=== PATIENT | male | born 1975 | race American Indian/Alaskan Native ===

== ENCOUNTER 2017-07-08 15:34 | Emergency (ER) | payer MEDICARE ==
[2017-07-08 15:46] VITALS: BP 98/71
[2017-07-08] MEDS ORDERED: MORPHINE ONE (15:58)
[2017-07-08] MEDS ORDERED: ZOFRAN ONE (15:58)
[2017-07-08] MEDS ORDERED: NORCO 7.5/325 PO ONE (19:50)
[2017-07-08] MEDS ORDERED: DELTASONE PO ONE (19:50)
[2017-07-08] MEDS ORDERED: LOVENOX SUB-Q ONE (19:51)
--- NOTE | 2017-07-08 20:08 | Emergency Department Report ---
HPI - General Chief Complaint: Extremity Injury, Lower Time Seen by Provider: 07/08/17 19:47 - HPI HPI: The patient is a 41-year-old male with a history of gout and congestive heart failure, who presents for evaluation of right knee pain. The patient reports right knee pain for the past one day, achy in quality, moderate in severity, exacerbated with movement of the right knee, associated with swelling of the knee. The patient states that his symptoms are consistent with previous gout attacks. He denies trauma to the knee, proximal pain or calf muscle pain, unilateral leg swelling, puncture wound to the knee, redness, chills, night sweats, fever. ED Past Medical Hx - Past Medical History Hx Congestive Heart Failure: Yes Additional medical history: GOUT - Surgical History Additional Surgical History: CARDIAC CATHETER, ICD - Social History Smoking Status: Former Smoker Substance Use Type: None - Medications Home Medications: Home Medications Medication Instructions Recorded Confirmed Last Taken Type HYDROcodone/APAP 7.5-325 [[place] 1 each PO Q8HR PRN #15 tablet 07/08/17 Unknown Rx 7.5-325 mg TAB] Prednisone [predniSONE 10 mg 10 mg PO .TAPER #1 tab.ds.pk 07/08/17 Unknown Rx (6-Day Pack, 21 Tabs)] ED Review of Systems ROS: Stated complaint: RIGHT KNEE PAIN Other details as noted in HPI Constitutional: denies: fever ENT: denies: throat or neck pain Respiratory: denies: cough, shortness of breath Cardiovascular: denies: chest pain Endocrine: denies unexplained weight loss or gain Gastrointestinal: denies: abdominal pain, nausea Genitourinary: denies: dysuria Musculoskeletal: reports: leg swelling and knee pain Skin: denies: rash Neurological: denies: headache Hematological/Lymphatic: denies: easy bleeding or easy bruising Psych: denies sadness or hopelessness Physical Exam - Physical Exam Vital Signs: Vital Signs 07/08/17 15:43 Temperature 98.2 F Pulse Rate 97 H Respiratory 18 Rate Blood Pressure 98/71 O2 Sat by Pulse 96 Oximetry Physical Exam: General: well-nourished, well-developed, no acute distress Head: Normocephalic, atraumatic Eyes: normal sclera ENT: Mucous membranes are pale and dry Neck: No neck stiffness, no cervical adenopathy Respiratory: Breath sounds equal bilaterally, no wheezing, rales, rhonchi, or crackles Cardio: S1 and S2 present, no murmurs, rubs, gallops, capillary refill is delayed Abdomen: Normoactive bowel sounds, soft abdomen, no rigidity, no guarding or rebound tenderness Musc: 1+ pitting edema of the bilateral lower legs present, No erythema, fluctuance, or warmth to the rt knee or surrounding knee, full passive and active range of motion intact, quadriceps extensor tendon function intact, no obvious swelling or effusion, rt knee lateral, medial, superior and inferior joint line tenderness to palpation present, no obvious effusion appreciable, Luis's and posterior drawer signs are negative, no LCL or MCL laxity, Flor's unable to be performed secondary to pain. Leg compartments are soft and pliable, distal sensation and motor function intact, reflexes 2+ and symmetric at the patella and Achilles bilaterally, distal pulses intact. Skin: No rash Neuro: no facial drooping, normal speech Psych: Normal affect ED Course Vital Signs 07/08/17 15:43 Temperature 98.2 F Pulse Rate 97 H Respiratory 18 Rate Blood Pressure 98/71 O2 Sat by Pulse 96 Oximetry ED Medical Decision Making - Medical Decision Making The patient was seen and examined by myself. The patient is placed on a satellite project site monitor and continuous pulse ox. On initial evaluation, the patient was found to be in no distress. Evaluation orders were placed. The patient is given a tablet of [place] and prednisone for treatment of his acute gout attack. As patient is afebrile and his exam is without any redness, fluctuance, crepitus , or wound to the right knee, evaluation findings are not consistent with septic arthritis is unlikely. The patient was reevaluated and reported that their symptoms were markedly improved. The patient is stable for discharge with outpatient follow-up. The patient is given follow-up and return instructions. The patient expressed understanding and agreed with the plan. The patient is discharged in stable condition.> Critical care attestation.: If time is entered above; I have spent that time in minutes in the direct care of this critically ill patient, excluding procedure time. ED Disposition Clinical Impression: Acute pain of right lower extremity Acute gout of right knee Qualifiers: Gout etiology: unspecified cause Qualified Code(s): M10.9 - Gout, unspecified Disposition: TO HOME OR SELFCARE Is pt being admited?: No Does the pt Need Aspirin: No Condition: Stable Instructions: Acute Gouty Arthritis (ED), Arthralgia (ED) Prescriptions: HYDROcodone/APAP 7.5-325 [[place] 7.5-325 mg TAB] 1 each PO Q8HR PRN #15 tablet PRN Reason: Pain Prednisone [predniSONE 10 mg (6-Day Pack, 21 Tabs)] 10 mg PO .TAPER #1 tab.ds.pk Referrals: PRIMARY CARE, [Primary Care Provider] - 3-5 Days DANIELLE TYLER MD [Staff Physician] - 3-5 Days Time of Disposition: 20:18
== END 2017-07-08 20:35 | disposition home or self-care (01) ==
LOC: ED 15:34
DX: M10.9 Gout, unspecified (principal); I50.9 Heart failure, unspecified; Z87.891 Personal history of nicotine dependence
CPT/HCPCS: 99283; J2270; J2405; J7512

== ENCOUNTER 2017-08-21 09:58 | Emergency (ER) | payer MEDICARE ==
[2017-08-21 11:41] VITALS: BP 94/56
[2017-08-21] MEDS ORDERED: SUBLIMAZE IM ONE (12:15)
[2017-08-21] MEDS ORDERED: ZOFRAN IM ONE (12:15)
[2017-08-21] MEDS ORDERED: TORADOL IM ONE (12:15)
[2017-08-21] MEDS ORDERED: COLCHICINE PO ONE (12:19)
--- NOTE | 2017-08-21 12:25 | Emergency Department Report ---
HPI - General Chief Complaint: Pain General Time Seen by Provider: 08/21/17 12:09 - HPI HPI: Don 22 The patient is a 41-year-old male presenting with a chief complaint of polyarthralgia. The patient has a history of gout and states he usually has an attack in his foot. The patient states for the past 2 days she has had pain in multiple joints but greatest in his right wrist. Patient denies any preceding trauma or fever. Patient states the pain feels somewhat consistent with his previous bouts of gout. The patient gives his pain a score of 11/10. Location: [See above] Duration: 2 days Quality: Pain consistent with gout Severity: 11/10 Modifying factors: Movement increases pain Context: [see above] Mode of transportation: [not driving] ED Past Medical Hx - Past Medical History Previous Medical History?: Yes Hx Congestive Heart Failure: Yes Hx Pulmonary Embolism: Yes (2005. Currently still taking anticoagulation) Additional medical history: GOUT - Surgical History Past Surgical History?: Yes Additional Surgical History: CARDIAC CATHETER, ICD - Family History Family history: no significant - Social History Smoking Status: Former Smoker (nontoxic 1.5 months) Substance Use Type: None (denies illicit drug use), Prescribed - Medications Home Medications: Home Medications Medication Instructions Recorded Confirmed Last Taken Type HYDROcodone/APAP 7.5-325 [[place] 1 each PO Q8HR PRN #15 tablet 07/08/17 Unknown Rx 7.5-325 mg TAB] Prednisone [predniSONE 10 mg 10 mg PO .TAPER #1 tab.ds.pk 07/08/17 Unknown Rx (6-Day Pack, 21 Tabs)] HYDROcodone/APAP 5-325 [[place] 1 - 2 each PO Q6HR PRN #14 tablet 08/21/17 Unknown Rx 5/325] Naproxen [Naprosyn] 500 mg PO BID PRN #20 tablet 08/21/17 Unknown Rx ED Review of Systems ROS: Stated complaint: JOINT PAIN Other details as noted in HPI Constitutional: denies: fever Eyes: denies: eye pain ENT: denies: throat pain Cardiovascular: denies: chest pain Gastrointestinal: denies: abdominal pain Genitourinary: denies: dysuria Musculoskeletal: arthralgia Neurological: denies: headache Physical Exam - Physical Exam Vital Signs: Vital Signs 08/21/17 08/21/17 10:30 11:38 Temperature 97.4 F L Pulse Rate 48 L 50 L Respiratory 20 16 Rate Blood Pressure 95/42 Blood Pressure 94/56 [Right] O2 Sat by Pulse 99 100 Oximetry Physical Exam: GENERAL: The patient is well-developed well-nourished male sitting on stretcher appearing to be in mild discomfort. [] HEENT: Normocephalic. Atraumatic. Extraocular motions are intact. Patient has moist mucous membranes. NECK: Supple. Trachea midline CHEST/LUNGS: Clear to auscultation. There is no respiratory distress noted. HEART/CARDIOVASCULAR: Regular. There is no tachycardia. There is no gallop rub or murmur. ABDOMEN: Abdomen is soft, nontender. Patient has normal bowel sounds. There is no abdominal distention. SKIN: There is no rash. There is no edema. There is no diaphoresis. No overlying erythema appreciated over patient's joints NEURO: The patient is awake, alert, and oriented. The patient is cooperative. The patient has normal speech MUSCULOSKELETAL: There is no increased warmth or edema appreciated of the patient's joints. There is limited range of motion of the right wrist secondary to pain. There is no evidence of acute injury. ED Course Vital Signs 08/21/17 08/21/17 10:30 11:38 Temperature 97.4 F L Pulse Rate 48 L 50 L Respiratory 20 16 Rate Blood Pressure 95/42 Blood Pressure 94/56 [Right] O2 Sat by Pulse 99 100 Oximetry ED Medical Decision Making - Lab Data Result diagrams: 08/21/17 12:52 Laboratory Tests 08/21/17 12:52 WBC 6.9 RBC 5.08 H Hgb 15.0 Hct 45.4 MCV 89 MCH 30 MCHC 33 RDW 16.9 H Plt Count 169 Williams % (Auto) Tear Down Matcher Add Manual Diff Complete Total Counted 100 Seg Neuts % (Manual) 65.0 Band Neutrophils % 0 Lymphocytes % (Manual) 18.0 Reactive Lymphs % (Man) 0 Monocytes % (Manual) 16.0 H Eosinophils % (Manual) 1.0 Basophils % (Manual) 0 Metamyelocytes % 0 Myelocytes % 0 Promyelocytes % 0 Blast Cells % 0 Nucleated RBC % Not Reportable Seg Neutrophils # Man 4.5 Band Neutrophils # 0.0 Lymphocytes # (Manual) 1.2 Abs React Lymphs (Man) 0.0 Monocytes # (Manual) 1.1 H Eosinophils # (Manual) 0.1 Basophils # (Manual) 0.0 Metamyelocytes # 0.0 Myelocytes # 0.0 Promyelocytes # 0.0 Blast Cells # 0.0 WBC Morphology Not Reportable Hypersegmented Neuts Not Reportable Hyposegmented Neuts Not Reportable Hypogranular Neuts Not Reportable Smudge Cells Not Reportable Toxic Granulation Not Reportable Toxic Vacuolation Not Reportable Dohle Bodies Not Reportable Pelger-Huet Anomaly Not Reportable Anastasia Rods Not Reportable Platelet Estimate Consistent w auto Clumped Platelets Not Reportable Plt Clumps, EDTA Not Reportable Large Platelets Not Reportable Giant Platelets Not Reportable Platelet Satelliting Not Reportable Plt Morphology Comment Not Reportable RBC Morphology Normal Dimorphic RBCs Not Reportable Polychromasia Not Reportable Hypochromasia Not Reportable Poikilocytosis Not Reportable Anisocytosis Not Reportable Microcytosis Not Reportable Macrocytosis Not Reportable Spherocytes Not Reportable Pappenheimer Bodies Not Reportable Sickle Cells Not Reportable Target Cells Not Reportable Tear Drop Cells Not Reportable Ovalocytes Not Reportable Helmet Cells Not Reportable Caldera-Toco Bodies Not Reportable [place] Rings Not Reportable [place] Cells Not Reportable Bite Cells Not Reportable Crenated Cell Not Reportable Elliptocytes Not Reportable Acanthocytes (Spur) Not Reportable Rouleaux Not Reportable Hemoglobin C Crystals Not Reportable Schistocytes Not Reportable Malaria parasites Not Reportable Clint Bodies Not Reportable Hem Pathologist Commnt No - Radiology Data Radiology results: report reviewed (left wrist x-ray), image reviewed (left wrist x-ray) interpreted by me: Left wrist x-ray-no acute fractures, no foreign body [facility] [address] [place] [address] XRay Report Signed Patient: MERE BOOTHE MR#: [id number] : 1975 Acct:[id number] Age/Sex: 41 / M ADM Date: 08/21/17 Loc: ED Attending Dr: Ordering Physician: TOMASA PARIS MD Date of Service: 08/21/17 Procedure(s): XR wrist 2V RT Accession Number(s): [id number] cc: TOMASA PARIS MD Fluoro Time In Minutes: RIGHT WRIST, 2 views History: wrist pain, injury. The scapholunate interval appears increased measuring 6 mm suggesting scapholunate ligament injury. The bony structures are intact. No evidence for fracture or dislocation. No significant degenerative changes. Mild soft tissue swelling is suspected. IMPRESSION: Probable scapholunate ligament injury. Transcribed By: TTR Dictated By: CLARK CORNEJO JR, MD Electronically Authenticated By: CLARK CORNEJO JR, MD Signed Date/Time: 08/21/171227 DD/ 26 TD/TT: 08/21/171227 - Medical Decision Making The radiologist's interpretation of potential scapholunate ligament injury discussed with patient. Patient again denies any form of trauma or mechanism consistent with this type of injury. I do not believe scapholunate ligament injury exists however the patient is still being placed in a wrist immobilizer and given a referral for orthopedic surgery for reevaluation - Differential Diagnosis gout, polyarthralgia, Critical care attestation.: If time is entered above; I have spent that time in minutes in the direct care of this critically ill patient, excluding procedure time. ED Disposition Clinical Impression: Gouty arthritis, Acute pain of right wrist Disposition: TO HOME OR SELFCARE Is pt being admited?: No Does the pt Need Aspirin: No Condition: Stable Instructions: Acute Gouty Arthritis (ED) Additional Instructions: Return to the emergency department immediately should you develop worsening symptoms, fever, inability to tolerate food or liquid or any other concerns. Prescriptions: HYDROcodone/APAP 5-325 [[place] 5/325] 1 - 2 each PO Q6HR PRN #14 tablet PRN Reason: Pain Naproxen [Naprosyn] 500 mg PO BID PRN #20 tablet PRN Reason: Pain, Moderate (4-6) Referrals: PRIMARY MD MARLEN [Primary Care Provider] - 3-5 Days DANIELLE ANGELES MD [Staff Physician] - 3-5 Days (Dr. Angeles is an orthopedic surgeon. Please follow-up with him for further evaluation) Time of Disposition: 14:17
--- NOTE | 2017-08-21 12:42 | XRay Report ---
RIGHT WRIST, 2 views History: wrist pain, injury. The scapholunate interval appears increased measuring 6 mm suggesting scapholunate ligament injury. The bony structures are intact. No evidence for fracture or dislocation. No significant degenerative changes. Mild soft tissue swelling is suspected. IMPRESSION: Probable scapholunate ligament injury.
[2017-08-21 13:12] LABS: Hematocrit 45.4 % (35.5-45.6); Mean Corpuscular HGB Conc 33 % (32-34); Mean Corpuscular Hemoglobin 30 pg (28-32); Mean Corpuscular Volume 89 fl (84-94); Platelet Count 169 K/mm3 (140-440); Red Blood Count 5.08 M/mm3 (3.65-5.03); Red Cell Distribution Width 16.9 % (13.2-15.2)
[2017-08-21 14:01] LABS: Basophils % (Manual) 0 % (0.0-1.8); Platelet Estimate Consistent w Auto; RBC Morphology Normal; Total Cells Counted 100
== END 2017-08-21 14:43 | disposition home or self-care (01) ==
LOC: ED 09:58
DX: M25.531 Pain in right wrist (principal); I50.9 Heart failure, unspecified; Z87.891 Personal history of nicotine dependence; M19.90 Unspecified osteoarthritis, unspecified site
CPT/HCPCS: 29125; 36415; 73100; 85007; 85025; 96372; 99284; J1885; J2405; J3010

== ENCOUNTER 2017-08-30 10:14 | Emergency (ER) | payer MEDICARE ==
[2017-08-30] MEDS ORDERED: TORADOL IM ONE (11:12)
[2017-08-30] MEDS ORDERED: DECADRON IM ONE (11:12)
[2017-08-30] MEDS ORDERED: COLCHICINE PO ONE (11:12)
--- NOTE | 2017-08-30 11:17 | Emergency Department Report ---
ED Extremity Problem HPI - General Chief complaint: Extremity Injury, Lower Stated complaint: R KNEE PAIN Time Seen by Provider: 08/30/17 11:11 Source: patient Mode of arrival: Ambulatory Limitations: No Limitations - History of Present Illness Initial comments: Patient is a 41-year-old -Armenian male is complaining of right knee swelling. Patient states these began about an approximately 2 days ago. Patient has a history of gout. Patient denies any injury fever at this time. Patient states that pain is not out of 10 in severity. His aching throbbing pain is worse when he stands when he bends his knee. - Related Data Previous Rx's Medication Instructions Recorded Last Taken Type HYDROcodone/APAP 7.5-325 [[place] 1 each PO Q8HR PRN #15 tablet 07/08/17 Unknown Rx 7.5-325 mg TAB] Prednisone [predniSONE 10 mg 10 mg PO .TAPER #1 tab.ds.pk 07/08/17 Unknown Rx (6-Day Pack, 21 Tabs)] HYDROcodone/APAP 5-325 [[place] 1 - 2 each PO Q6HR PRN #14 tablet 08/21/17 Unknown Rx 5/325] Prednisone [predniSONE 10 mg 10 mg PO .TAPER #1 tab.ds.pk 08/21/17 Unknown Rx (6-Day Pack, 21 Tabs)] Ibuprofen [Motrin] 800 mg PO Q8HR PRN #20 tablet 08/30/17 Unknown Rx traMADol [Ultram] 50 mg PO Q6HR PRN #12 tablet 08/30/17 Unknown Rx Allergies Allergy/AdvReac Type Severity Reaction Status Date / Time No Known Allergies Allergy Unverified 07/08/17 15:43 ED Review of Systems ROS: Stated complaint: R KNEE PAIN Other details as noted in HPI Comment: All other systems reviewed and negative ED Past Medical Hx - Past Medical History Hx Congestive Heart Failure: Yes Hx Pulmonary Embolism: Yes (2006. Currently still taking anticoagulation) Additional medical history: GOUT - Surgical History Additional Surgical History: CARDIAC CATHETER, ICD - Social History Smoking Status: Never Smoker Substance Use Type: None - Medications Home Medications: Home Medications Medication Instructions Recorded Confirmed Last Taken Type HYDROcodone/APAP 7.5-325 [[place] 1 each PO Q8HR PRN #15 tablet 07/08/17 Unknown Rx 7.5-325 mg TAB] Prednisone [predniSONE 10 mg 10 mg PO .TAPER #1 tab.ds.pk 07/08/17 Unknown Rx (6-Day Pack, 21 Tabs)] HYDROcodone/APAP 5-325 [[place] 1 - 2 each PO Q6HR PRN #14 tablet 08/21/17 Unknown Rx 5/325] Prednisone [predniSONE 10 mg 10 mg PO .TAPER #1 tab.ds.pk 08/21/17 Unknown Rx (6-Day Pack, 21 Tabs)] Ibuprofen [Motrin] 800 mg PO Q8HR PRN #20 tablet 08/30/17 Unknown Rx traMADol [Ultram] 50 mg PO Q6HR PRN #12 tablet 08/30/17 Unknown Rx ED Physical Exam - General Limitations: No Limitations General appearance: alert, in no apparent distress - Head Head exam: Present: atraumatic, normocephalic - Eye Eye exam: Present: normal appearance - ENT ENT exam: Present: mucous membranes moist - Neck Neck exam: Present: normal inspection - Respiratory Respiratory exam: Present: normal lung sounds bilaterally. Absent: respiratory distress - Cardiovascular Cardiovascular Exam: Present: regular rate, normal rhythm. Absent: systolic murmur, diastolic murmur, rubs, gallop - GI/Abdominal GI/Abdominal exam: Present: soft, normal bowel sounds - Rectal Rectal exam: Present: deferred - Extremities Exam Extremities exam: Present: normal inspection, joint swelling (patient's right knee shows some mild to moderate effusion. There is no warmth no redness to the skin. Patient has full range of motion.) - Back Exam Back exam: Present: normal inspection - Neurological Exam Neurological exam: Present: alert, oriented X3 - Psychiatric Psychiatric exam: Present: normal affect, normal mood - Skin Skin exam: Present: warm, dry, intact, normal color. Absent: rash ED Course Vital Signs 08/30/17 10:25 Temperature 98.5 F Pulse Rate 92 H Blood Pressure 102/56 O2 Sat by Pulse 98 Oximetry ED Medical Decision Making - Medical Decision Making Patient most likely has arthritic effusion present. Because of the history gout does occult seen steroids be given. Patient be discharged home with rice therapy. Critical care attestation.: If time is entered above; I have spent that time in minutes in the direct care of this critically ill patient, excluding procedure time. ED Disposition Clinical Impression: Knee effusion, right Disposition: DC-01 TO HOME OR SELFCARE Is pt being admited?: No Does the pt Need Aspirin: No Condition: Stable Instructions: Knee Effusion (ED), RICE Therapy (ED) Referrals: DANIELLE TYLER MD [Staff Physician] - 3-5 Days
[2017-08-30] MEDS ORDERED: COLCHICINE ONE (11:37)
[2017-08-30] MEDS ORDERED: DECADRON ONE (11:37)
[2017-08-30] MEDS ORDERED: TORADOL ONE (11:37)
[2017-08-30 11:53] VITALS: BP 110/69
== END 2017-08-30 11:53 | disposition home or self-care (01) ==
LOC: ED 10:14
DX: M25.461 Effusion, right knee (principal); I50.9 Heart failure, unspecified
CPT/HCPCS: 96372; 99282; J1100; J1885

== ENCOUNTER 2018-03-18 17:56 | Emergency (ER) | payer MEDICARE ==
[2018-03-18 18:05] VITALS: BP 102/70
[2018-03-18] MEDS ORDERED: TORADOL IM ONE (19:19)
[2018-03-18] MEDS ORDERED: DECADRON IM ONE (19:19)
--- NOTE | 2018-03-18 19:36 | Emergency Department Report ---
Upper Extremity - [facility] Chief Complaint: Extremity Injury, Upper Stated Complaint: GOUT Time Seen by Provider: 03/18/18 19:16 Upper Extremity: Left Hand, Right Hand Occurred When: 2 Days Severity: moderate Symptoms: Yes Pain with Movement, Yes Swelling, No Deformity, No Limited Range of Movement, No Numbness, No Weakness, No Bruising/Ecchymosis, No Laceration or Abrasion Other History: hx of gout ED Review of Systems ROS: Stated complaint: GOUT Other details as noted in HPI Constitutional: denies: chills, fever Eyes: denies: eye pain, eye discharge, vision change ENT: denies: ear pain, throat pain Respiratory: denies: cough, shortness of breath, wheezing Cardiovascular: denies: chest pain, palpitations Endocrine: no symptoms reported Gastrointestinal: denies: abdominal pain, nausea, diarrhea Genitourinary: as per HPI Musculoskeletal: joint swelling, arthralgia, other Skin: denies: rash, lesions ED Past Medical Hx - Past Medical History Hx Congestive Heart Failure: Yes Hx Deep Vein Thrombosis: No Hx Pulmonary Embolism: Yes Additional medical history: GOUT - Surgical History Hx Pacemaker: Yes (left chest) Hx Internal Defibrillator: No Additional Surgical History: CARDIAC CATHETER, ICD - Social History Smoking Status: Never Smoker Substance Use Type: None - Medications Home Medications: Home Medications Medication Instructions Recorded Confirmed Last Taken Type Allopurinol 100 mg PO DAILY 10/16/17 10/16/17 10/15/17 08:00 History Potassium Chloride [K-Tab ER] 40 meq PO DAILY 10/16/17 10/16/17 10/15/17 08:00 History Amiodarone [Cordarone 200 MG TAB] 400 mg PO BID #120 tablet 10/21/17 Unknown Rx Carvedilol [Coreg] 3.125 mg PO BID #60 tablet 10/21/17 Unknown Rx Potassium Chloride [K-Dur] 40 meq PO QDAY #60 tablet 10/21/17 Unknown Rx Torsemide [Demadex] 40 mg PO BID@0600,1800 #60 tablet 10/21/17 Unknown Rx Warfarin [Coumadin] 7.5 mg PO DAILY@1700 #30 tablet 10/21/17 Unknown Rx oxyCODONE /ACETAMINOPHEN [Percocet 1 tab PO Q6H PRN #20 tablet 10/21/17 Unknown Rx 5/325 mg] predniSONE [Deltasone] 20 mg PO QDAY #5 tablet 10/21/17 Unknown Rx Azithromycin [Zithromax TAB] 500 mg PO QDAY #7 tablet 01/15/18 Unknown Rx Naproxen [Naprosyn] 500 mg PO BID #20 tablet 01/15/18 Unknown Rx guaiFENesin/DEXTROMETHORPHAN 10 ml PO TID #1 bottle 01/15/18 Unknown Rx [Tussin Dm Cough Syrup] Indomethacin [Indocin] 50 mg RC TID #30 supp.rect 03/18/18 Unknown Rx predniSONE [Deltasone] 40 mg PO DAILY 5 Days #20 tablet 03/18/18 Unknown Rx Upper Extremity Exam - Exam General: Vital signs noted. No distress. Alert and acting appropriately. Head and Torso: No HEENT Abnormality, No Neck Tenderness, No Chest/Lungs Abnormality, No Abdominal Tenderness, No Back Tenderness Shoulder Exam: Yes Normal Range of Motion in Shoulder, No Shoulder Tenderness, No Clavicle Tenderness, No Shoulder Deformity, No AC Joint Tenderness Arm Exam: No Arm/Humerus Tenderness, No Arm Deformity Elbow: No Elbow Tenderness, No Normal Range of Motion in Elbow, No Elbow Deformity Forearm: No Forearm Tenderness, No Forearm Deformity, No Pain with Pronation, No Pain with Supination Wrist: Yes Normal ROM in Wrist, No Wrist Tenderness, No Wrist Deformity, No Snuffbox Tenderness, No Pain with Axial Thumb Compression Hand: Yes Hand Tenderness, Yes Digit Tenderness, Yes Normal ROM in Digit(s), No Hand Deformity, No Digit(s) Deformity, No Tendon Dysfunction CMS Exam: Yes Normal Distal Pulses, Yes Normal Capillary Refill, Yes Normal Distal Sensation, No Broken Skin ED Course Vital Signs 03/18/18 18:03 Temperature 98.6 F Pulse Rate 102 H Respiratory 18 Rate Blood Pressure 102/70 O2 Sat by Pulse 98 Oximetry ED Medical Decision Making - Medical Decision Making This is a gout arthritis flare we'll DC to home with prednisone and indomethacin this is patient's usual treatment patient will follow up with PCP in 2-3 days patient will return to emergency should symptoms worsen this pulses are intact range of motion are intact swelling is minimal at this time patient improvement and says given an ED patient verbalizes agreement and understanding with discharge plan patient DC'd home in stable condition at this time Critical care attestation.: If time is entered above; I have spent that time in minutes in the direct care of this critically ill patient, excluding procedure time. ED Disposition Clinical Impression: Gout of hand Qualifiers: Gout etiology: unspecified cause Chronicity: acute Laterality: unspecified laterality Qualified Code(s): M10.9 - Gout, unspecified Disposition: TO HOME OR SELFCARE Is pt being admited?: No Does the pt Need Aspirin: No Condition: Stable Instructions: Acute Gouty Arthritis (ED) Prescriptions: Indomethacin [Indocin] 50 mg RC TID #30 supp.rect predniSONE [Deltasone] 40 mg PO DAILY 5 Days #20 tablet Referrals: ANNA MARIE ESPANA MD [Primary Care Provider] - 3-5 Days Forms: Work/School Release Form(ED) Time of Disposition: 19:36
== END 2018-03-18 19:47 | disposition home or self-care (01) ==
LOC: ED 17:56
DX: M10.9 Gout, unspecified (principal); I50.9 Heart failure, unspecified
CPT/HCPCS: 96372; 99282; J1100; J1885

== ENCOUNTER 2018-05-06 15:17 | Emergency (ER) | payer MEDICARE ==
[2018-05-06 15:26] VITALS: BP 106/73
[2018-05-06] MEDS ORDERED: TORADOL IM STA (15:26)
--- NOTE | 2018-05-06 15:30 | Emergency Department Report ---
ED General Adult HPI - General Chief complaint: Extremity Injury, Lower Stated complaint: RIGHT LEG/FOOT PAIN Time Seen by Provider: 05/06/18 15:24 Source: patient Mode of arrival: Wheelchair Limitations: No Limitations - History of Present Illness Initial comments: 42 y/o male with PMH of gout presents c/o of a gout flare up to right knee and foot. presents with recurrent flares and seeks toradol to treat. no numbness or tingling. no trauma. Location: lower extremity Radiation: non-radiation Severity scale (0 -10): 9 Quality: aching, dull Consistency: constant Improves with: none Worsens with: none Associated Symptoms: denies: confusion, chest pain, diaphoresis, fever/chills, loss of appetite, malaise, nausea/vomiting, shortness of breath, syncope Treatments Prior to Arrival: none - Related Data Home Medications Medication Instructions Recorded Confirmed Last Taken Allopurinol 100 mg PO DAILY 10/16/17 10/16/17 10/15/17 08:00 Potassium Chloride [K-Tab ER] 40 meq PO DAILY 10/16/17 10/16/17 10/15/17 08:00 Previous Rx's Medication Instructions Recorded Last Taken Type Amiodarone [Cordarone 200 MG TAB] 400 mg PO BID #120 tablet 10/21/17 Unknown Rx Carvedilol [Coreg] 3.125 mg PO BID #60 tablet 10/21/17 Unknown Rx Potassium Chloride [K-Dur] 40 meq PO QDAY #60 tablet 10/21/17 Unknown Rx Torsemide [Demadex] 40 mg PO BID@0600,1800 #60 tablet 10/21/17 Unknown Rx Warfarin [Coumadin] 7.5 mg PO DAILY@1700 #30 tablet 10/21/17 Unknown Rx oxyCODONE /ACETAMINOPHEN [Percocet 1 tab PO Q6H PRN #20 tablet 10/21/17 Unknown Rx 5/325 mg] predniSONE [Deltasone] 20 mg PO QDAY #5 tablet 10/21/17 Unknown Rx Azithromycin [Zithromax TAB] 500 mg PO QDAY #7 tablet 01/15/18 Unknown Rx Naproxen [Naprosyn] 500 mg PO BID #20 tablet 01/15/18 Unknown Rx guaiFENesin/DEXTROMETHORPHAN 10 ml PO TID #1 bottle 01/15/18 Unknown Rx [Tussin Dm Cough Syrup] Indomethacin [Indocin] 50 mg RC TID #30 supp.rect 03/18/18 Unknown Rx predniSONE [Deltasone] 40 mg PO DAILY 5 Days #20 tablet 03/18/18 Unknown Rx Ketorolac [Toradol] 10 mg PO Q6H PRN #15 tablet 05/06/18 Unknown Rx Allergies Allergy/AdvReac Type Severity Reaction Status Date / Time No Known Allergies Allergy Verified 05/06/18 15:18 ED Review of Systems ROS: Stated complaint: RIGHT LEG/FOOT PAIN Other details as noted in HPI Constitutional: denies: chills, fever Eyes: denies: eye pain, eye discharge, vision change ENT: denies: ear pain, throat pain Respiratory: denies: cough, shortness of breath, wheezing Cardiovascular: denies: chest pain, palpitations Endocrine: no symptoms reported Gastrointestinal: denies: abdominal pain, nausea, diarrhea Genitourinary: denies: urgency, dysuria Musculoskeletal: joint swelling, arthralgia. denies: back pain Skin: denies: rash, lesions Neurological: denies: headache, weakness, paresthesias Psychiatric: denies: anxiety, depression Hematological/Lymphatic: denies: easy bleeding, easy bruising ED Past Medical Hx - Past Medical History Hx Congestive Heart Failure: Yes Hx Deep Vein Thrombosis: No Hx Pulmonary Embolism: Yes Additional medical history: GOUT - Surgical History Hx Pacemaker: Yes Hx Internal Defibrillator: No Additional Surgical History: CARDIAC CATHETER, ICD - Social History Smoking Status: Never Smoker Substance Use Type: None - Medications Home Medications: Home Medications Medication Instructions Recorded Confirmed Last Taken Type Allopurinol 100 mg PO DAILY 10/16/17 10/16/17 10/15/17 08:00 History Potassium Chloride [K-Tab ER] 40 meq PO DAILY 10/16/17 10/16/17 10/15/17 08:00 History Amiodarone [Cordarone 200 MG TAB] 400 mg PO BID #120 tablet 10/21/17 Unknown Rx Carvedilol [Coreg] 3.125 mg PO BID #60 tablet 10/21/17 Unknown Rx Potassium Chloride [K-Dur] 40 meq PO QDAY #60 tablet 10/21/17 Unknown Rx Torsemide [Demadex] 40 mg PO BID@0600,1800 #60 tablet 10/21/17 Unknown Rx Warfarin [Coumadin] 7.5 mg PO DAILY@1700 #30 tablet 10/21/17 Unknown Rx oxyCODONE /ACETAMINOPHEN [Percocet 1 tab PO Q6H PRN #20 tablet 10/21/17 Unknown Rx 5/325 mg] predniSONE [Deltasone] 20 mg PO QDAY #5 tablet 10/21/17 Unknown Rx Azithromycin [Zithromax TAB] 500 mg PO QDAY #7 tablet 01/15/18 Unknown Rx Naproxen [Naprosyn] 500 mg PO BID #20 tablet 01/15/18 Unknown Rx guaiFENesin/DEXTROMETHORPHAN 10 ml PO TID #1 bottle 01/15/18 Unknown Rx [Tussin Dm Cough Syrup] Indomethacin [Indocin] 50 mg RC TID #30 supp.rect 03/18/18 Unknown Rx predniSONE [Deltasone] 40 mg PO DAILY 5 Days #20 tablet 03/18/18 Unknown Rx Ketorolac [Toradol] 10 mg PO Q6H PRN #15 tablet 05/06/18 Unknown Rx ED Physical Exam - General Limitations: No Limitations General appearance: alert, in no apparent distress - Head Head exam: Present: atraumatic, normocephalic - Eye Eye exam: Present: normal appearance - ENT ENT exam: Present: mucous membranes moist - Neck Neck exam: Present: normal inspection - Respiratory Respiratory exam: Present: normal lung sounds bilaterally. Absent: respiratory distress - Cardiovascular Cardiovascular Exam: Present: regular rate, normal rhythm. Absent: systolic murmur, diastolic murmur, rubs, gallop - GI/Abdominal GI/Abdominal exam: Present: soft, normal bowel sounds - Rectal Rectal exam: Present: deferred - Extremities Exam Extremities exam: Present: normal inspection, normal capillary refill, joint swelling (right knee and pain with warmth. pain with rom. no lymphangitis. no poplieteal mass. ) - Back Exam Back exam: Present: normal inspection - Neurological Exam Neurological exam: Present: alert, oriented X3 - Psychiatric Psychiatric exam: Present: normal affect, normal mood - Skin Skin exam: Present: warm, dry, intact, normal color. Absent: rash ED Course Vital Signs 05/06/18 05/06/18 15:22 15:24 Temperature 97.5 F L Pulse Rate 58 L 55 L Respiratory 16 Rate Blood Pressure 106/73 106/73 O2 Sat by Pulse 99 99 Oximetry Critical care attestation.: If time is entered above; I have spent that time in minutes in the direct care of this critically ill patient, excluding procedure time. ED Disposition Clinical Impression: Gout attack Disposition: TO HOME OR SELFCARE Is pt being admited?: No Does the pt Need Aspirin: No Condition: Stable Instructions: Acute Gouty Arthritis (ED) Prescriptions: Ketorolac [Toradol] 10 mg PO Q6H PRN #15 tablet PRN Reason: Pain Referrals: [facility] [Provider Group] - 3-5 Days [facility] [Provider Group] - 3-5 Days
== END 2018-05-06 15:54 | disposition home or self-care (01) ==
LOC: ED 15:17
DX: M10.9 Gout, unspecified (principal); I50.9 Heart failure, unspecified; Z86.711 Personal history of pulmonary embolism; Z95.818 Presence of other cardiac implants and grafts; Z79.899 Other long term (current) drug therapy
CPT/HCPCS: 96372; 99282; J1885

== ENCOUNTER 2018-05-07 14:02 | Inpatient (IN) | payer MEDICARE ==
--- NOTE | 2018-05-07 14:37 | Emergency Department Report ---
Chief Complaint: Extremity Problem,Nontraumatic Stated Complaint: (R) KNEE/FOOT GOUT Time Seen by Provider: 05/07/18 14:27 - HPI History of Present Illness: This is a 42 y.o. male that presents with sharp pain to RLE. Patient was seen here yesterday with gout flare. Patient states pain is uncontrolled with toradol. - ROS Review of Systems: Extremities: Right foot and right knee pain. - Exam Vital Signs: Vital Signs 05/07/18 14:28 Temperature 98.4 F Pulse Rate 78 Respiratory 18 Rate Blood Pressure 99/64 O2 Sat by Pulse 98 Oximetry MSE screening note: Focused history and physical exam performed. Due to findings the following was ordered: Fast track for further evaluation. ED Disposition for MSE Condition: Stable
[2018-05-07 16:02] LABS: Hematocrit 40.6 % (35.5-45.6); Hemoglobin 13.2 gm/dl (11.8-15.2); Mean Corpuscular HGB Conc 33 % (32-34); Mean Corpuscular Volume 87 fl (84-94); Platelet Count 207 K/mm3 (140-440); Red Blood Count 4.67 M/mm3 (3.65-5.03); Red Cell Distribution Width 18.2 % (13.2-15.2)
[2018-05-07 16:35] LABS: Albumin 3.2 g/dL (3.9-5); Calcium 8.7 mg/dL (8.4-10.2)
[2018-05-07] MEDS ORDERED: HumuLIN R IV ONE (17:16)
[2018-05-07] MEDS ORDERED: NACL 0.9% 1000 ML 1,000 ML IV ONE ×2 (17:16→19:10)
[2018-05-07] MEDS ORDERED: NACL 0.9% 500 ML 500 ML ONE ×2 (17:17→17:50)
--- NOTE | 2018-05-07 17:23 | Emergency Department Report ---
ED Chest Pain HPI - General Chief Complaint: Extremity Problem,Nontraumatic Stated Complaint: (R) KNEE/FOOT GOUT Time Seen by Provider: 05/07/18 14:27 Source: patient Mode of arrival: Ambulatory Limitations: No Limitations - History of Present Illness Initial Comments: Patient is 42 years old male with history of advised congestive heart failure ejection fraction of 10%. Patient presented to the ER stating that he has a gout flareup in his right knee and right foot. While in triage patient started having chest pain and shortness of breath. Patient found to have a blood pressure of 71/38. Patient immediately moved to room 24. Put on cardiac mo nitor. Patient received normal saline 500 mL. MD Complaint: chest pain Onset: during rest Pain Location: substernal Pain Radiation: none Severity scale (0 -10): 10 Quality: tightness - Related Data Home Medications Medication Instructions Recorded Confirmed Last Taken Allopurinol 100 mg PO DAILY 10/16/17 10/16/17 10/15/17 08:00 Potassium Chloride [K-Tab ER] 40 meq PO DAILY 10/16/17 10/16/17 10/15/17 08:00 Previous Rx's Medication Instructions Recorded Last Taken Type Amiodarone [Cordarone 200 MG TAB] 400 mg PO BID #120 tablet 10/21/17 Unknown Rx Carvedilol [Coreg] 3.125 mg PO BID #60 tablet 10/21/17 Unknown Rx Potassium Chloride [K-Dur] 40 meq PO QDAY #60 tablet 10/21/17 Unknown Rx Torsemide [Demadex] 40 mg PO BID@0600,1800 #60 tablet 10/21/17 Unknown Rx Warfarin [Coumadin] 7.5 mg PO DAILY@1700 #30 tablet 10/21/17 Unknown Rx oxyCODONE /ACETAMINOPHEN [Percocet 1 tab PO Q6H PRN #20 tablet 10/21/17 Unknown Rx 5/325 mg] predniSONE [Deltasone] 20 mg PO QDAY #5 tablet 10/21/17 Unknown Rx Azithromycin [Zithromax TAB] 500 mg PO QDAY #7 tablet 01/15/18 Unknown Rx Naproxen [Naprosyn] 500 mg PO BID #20 tablet 01/15/18 Unknown Rx guaiFENesin/DEXTROMETHORPHAN 10 ml PO TID #1 bottle 01/15/18 Unknown Rx [Tussin Dm Cough Syrup] Indomethacin [Indocin] 50 mg RC TID #30 supp.rect 03/18/18 Unknown Rx predniSONE [Deltasone] 40 mg PO DAILY 5 Days #20 tablet 03/18/18 Unknown Rx Ketorolac [Toradol] 10 mg PO Q6H PRN #15 tablet 05/06/18 Unknown Rx Allergies Allergy/AdvReac Type Severity Reaction Status Date / Time No Known Allergies Allergy Verified 05/06/18 15:18 Heart Score - HEART Score History: Highly suspicious EKG: Non-specific Age: < 45 Risk factors: > 3 risk factors or hx of atherosclerotic disease Troponin: < normal limit HEART Score: 5 - Critical Actions Critical Actions: 4-6 pts:12-16.6% risk of adverse cardiac event. Should be admitted ED Review of Systems ROS: Stated complaint: (R) KNEE/FOOT GOUT Other details as noted in HPI Comment: All other systems reviewed and negative Constitutional: denies: chills, fever Respiratory: orthopnea, shortness of breath, SOB with exertion, SOB at rest. denies: cough, stridor, wheezing Cardiovascular: chest pain. denies: palpitations Gastrointestinal: denies: abdominal pain, nausea, vomiting, diarrhea, constipation, hematemesis, melena Musculoskeletal: denies: back pain Neurological: denies: headache ED Past Medical Hx - Past Medical History Previous Medical History?: Yes Hx Congestive Heart Failure: Yes Hx Deep Vein Thrombosis: No Hx Pulmonary Embolism: Yes Additional medical history: GOUT - Surgical History Past Surgical History?: Yes Hx Pacemaker: Yes Hx Internal Defibrillator: No Additional Surgical History: Cardia cath - Social History Smoking Status: Never Smoker Substance Use Type: None - Medications Home Medications: Home Medications Medication Instructions Recorded Confirmed Last Taken Type Allopurinol 100 mg PO DAILY 10/16/17 10/16/17 10/15/17 08:00 History Potassium Chloride [K-Tab ER] 40 meq PO DAILY 10/16/17 10/16/17 10/15/17 08:00 History Amiodarone [Cordarone 200 MG TAB] 400 mg PO BID #120 tablet 10/21/17 Unknown Rx Carvedilol [Coreg] 3.125 mg PO BID #60 tablet 10/21/17 Unknown Rx Potassium Chloride [K-Dur] 40 meq PO QDAY #60 tablet 10/21/17 Unknown Rx Torsemide [Demadex] 40 mg PO BID@0600,1800 #60 tablet 10/21/17 Unknown Rx Warfarin [Coumadin] 7.5 mg PO DAILY@1700 #30 tablet 10/21/17 Unknown Rx oxyCODONE /ACETAMINOPHEN [Percocet 1 tab PO Q6H PRN #20 tablet 10/21/17 Unknown Rx 5/325 mg] predniSONE [Deltasone] 20 mg PO QDAY #5 tablet 10/21/17 Unknown Rx Azithromycin [Zithromax TAB] 500 mg PO QDAY #7 tablet 01/15/18 Unknown Rx Naproxen [Naprosyn] 500 mg PO BID #20 tablet 01/15/18 Unknown Rx guaiFENesin/DEXTROMETHORPHAN 10 ml PO TID #1 bottle 01/15/18 Unknown Rx [Tussin Dm Cough Syrup] Indomethacin [Indocin] 50 mg RC TID #30 supp.rect 03/18/18 Unknown Rx predniSONE [Deltasone] 40 mg PO DAILY 5 Days #20 tablet 03/18/18 Unknown Rx Ketorolac [Toradol] 10 mg PO Q6H PRN #15 tablet 05/06/18 Unknown Rx ED Physical Exam - General Limitations: No Limitations General appearance: alert, in no apparent distress - Head Head exam: Present: atraumatic, normocephalic, normal inspection - Eye Eye exam: Present: normal appearance - ENT ENT exam: Present: normal exam, normal orophraynx, mucous membranes moist - Neck Neck exam: Present: normal inspection, full ROM. Absent: tenderness, meningismus - Respiratory Respiratory exam: Present: normal lung sounds bilaterally - Cardiovascular Cardiovascular Exam: Present: regular rate - GI/Abdominal GI/Abdominal exam: Present: soft. Absent: distended, tenderness, guarding, rebound, rigid - Extremities Exam Extremities exam: Present: normal inspection - Expanded Lower Extremity Exam Right Knee exam: Present: tenderness, swelling Foot/Toe exam: Present: tenderness, swelling ED Course Vital Signs 05/07/18 05/07/18 05/07/18 14:28 17:16 17:30 Temperature 98.4 F Pulse Rate 78 108 H 106 H Respiratory 18 Rate Blood Pressure 99/64 75/46 75/41 O2 Sat by Pulse 98 Oximetry 05/07/18 05/07/18 05/07/18 17:40 18:00 18:20 Temperature Pulse Rate 109 H 105 H 107 H Respiratory 21 22 21 Rate Blood Pressure 75/41 75/42 82/47 O2 Sat by Pulse Oximetry 05/07/18 05/07/18 18:40 19:00 Temperature 98.3 F Pulse Rate 103 H 111 H Respiratory Rate Blood Pressure 59/42 67/43 O2 Sat by Pulse Oximetry ED Medical Decision Making - Lab Data Result diagrams: 05/07/18 17:56 05/07/18 15:54 - EKG Data -: EKG Interpreted by Me EKG shows normal: sinus rhythm Rate: tachycardia - EKG Data Interpretation: no acute changes - Radiology Data Radiology results: report reviewed Chest x-ray show bilateral perihilar and lower lobe infiltrate suggestive of infectious infiltrate. - Medical Decision Making Patient is 42 years old male with history of advised congestive heart failure ejection fraction of 10%. Patient presented to the ER stating that he has a gout flareup in his right knee and right foot. While in triage patient started having chest pain and shortness of breath. Patient found to have a blood pressure of 71/38. Patient immediately moved to room 24. Put on diagnostic cardiac sonographer. Patient received normal saline 500 mL. Patient received 1 L of normal saline. His blood pressure now is 148/100. Patient found to have bilateral lower lobe infiltrate. Patient receive Zosyn. I discussed the patient is Dr. Lindo, he agreed to admit the patient to medical service. Critical Care Time: Yes Critical care time in (mins) excluding proc time.: 30 Critical care attestation.: If time is entered above; I have spent that time in minutes in the direct care of this critically ill patient, excluding procedure time. ED Disposition Clinical Impression: Elevated troponin, Chest pain, Pneumonia of both lower lobes Disposition: [id number] OP ADMIT IP TO THIS HOSP Is pt being admited?: Yes Condition: Stable Instructions: Chest Pain (ED), Bacterial Pneumonia (ED)
[2018-05-07] MEDS ORDERED: ZOSYN/NS 3.375GM/50ML 3.375 GM/50 ML BAG IV ONE (18:00)
[2018-05-07 18:25] LABS: Hematocrit 39.1 % (35.5-45.6); Hemoglobin 12.8 gm/dl (11.8-15.2); Mean Corpuscular HGB Conc 33 % (32-34); Mean Corpuscular Volume 86 fl (84-94); Platelet Count 208 K/mm3 (140-440); Red Blood Count 4.54 M/mm3 (3.65-5.03); Red Cell Distribution Width 18.1 % (13.2-15.2)
[2018-05-07] MEDS: KCL 10MEQ/100ML 10 MEQ/100 ML BAG IV SCH ×2 (18:41→21:21)
[2018-05-07 19:13] LABS: Basophils % (Manual) 0 % (0.0-1.8); Eosinophils % (Manual) 0 % (0.0-4.3); RBC Morphology Normal; Total Cells Counted 100
--- NOTE | 2018-05-07 19:17 | XRay Report ---
PROCEDURE: XR CHEST 1V AP TECHNIQUE: Frontal chest x-ray HISTORY: chest pain COMPARISONS: 01/15/2018 FINDINGS: AICD is present. Persistent enlarged cardiac silhouette compatible with cardiomegaly or pericardial effusion. Perihilar and lower lobe infiltrates with left lower lobe opacification. Mild silhouetting of left he midiaphragm. Pulmonary vascular congestion. IMPRESSION: Bilateral perihilar and lower lobe infiltrates in a patient with cardiomegaly and pacer. Findings are suggestive of mild congestive failure but superimposed infectious infiltrates cannot be excluded.. Cannot distinguish cardiomegaly versus pericardial effusion on plain film. This document is electronically signed by Nancy Raya MD., May 07 2018 07:15:22 PM ET
[2018-05-07] MEDS ORDERED: MORPHINE ONE ×2 (20:19→21:18)
[2018-05-07] MEDS ORDERED: MORPHINE IV ONE ×2 (20:20→21:22)
[2018-05-07 22:28] LABS: Chol/HDL Ratio 1.75 %
[2018-05-07 23:06] VITALS: BP 85/54
[2018-05-08 00:12] LABS: Amorphous Crystals,Urine 1+; Bilirubin,Urine NEG (Negative); Blood,Urine NEG (Negative); Color,Urine Yellow (Yellow); Hyaline Casts,Urine 1 /LPF; Mucus,Urine FEW /HPF
[2018-05-08 00:16] LABS: Protein,Urine >500 mg/dL (Negative)
== END 2018-05-08 08:30 | disposition left against medical advice (07) | DRG 553 ==
LOC: ED 14:02 → 4A 19:23
PROVIDERS: ADMIT Internal Medicine; ATTEND Internal Medicine
DX: M10.061 Idiopathic gout, right knee (principal); J18.1 Lobar pneumonia, unspecified organism; I11.0 Hypertensive heart disease with heart failure; M10.071 Idiopathic gout, right ankle and foot; I50.9 Heart failure, unspecified; Z79.899 Other long term (current) drug therapy; Z86.711 Personal history of pulmonary embolism; Z79.01 Long term (current) use of anticoagulants; Z95.0 Presence of cardiac pacemaker
CPT/HCPCS: 36415; 71045; 80053; 80061; 81001; 82140; 84484; 85007; 85025; 85027; 85379; 87040; 93005; 93010; G0378; J1815; J2270; J2543; J3480; J7030; J7040